=== PATIENT | female | born 1990 | race Caucasian/White ===

== ENCOUNTER → 2017-04-26 | Outpatient (CLI) | payer OTHER ==
--- NOTE | 2017-04-26 11:45 | RAD ---
Three-view cervical spine series History: Neck pain with right-sided radiculopathy. Findings: No acute fracture or discitis or osteolytic process or prevertebral soft tissue swelling is evident. There is mild degenerative endplate spurring without disc space narrowing at C4-5 and C5-6 and C6-7. IMPRESSION: Mild degenerative cervical spondylosis.
--- NOTE | 2017-04-26 11:47 | RAD ---
Three-view lumbar spine series History: Low back pain with right-sided radiculopathy. Pain is been present for years. No known injury. Findings: The transverse processes are intact. Minimal rotatory dextroscoliosis is seen. No compression fracture or discitis or osteolytic process or anterolisthesis or spondylolysis is evident. There is mild degenerative endplate spurring and disc space narrowing throughout the lumbar spine and the lumbosacral junction. The transverse processes are intact. IMPRESSION: Mild degenerative lumbar spondylosis.
== END | disposition home or self-care (01) ==
LOC: DXRADRC 11:02
PROVIDERS: ATTEND Physician Assistant Medical
DX: M47.26 Other spondylosis with radiculopathy, lumbar region (principal); M47.22 Other spondylosis with radiculopathy, cervical region; M41.86 Other forms of scoliosis, lumbar region
CPT/HCPCS: 72040; 72100